=== PATIENT | female | born 1950 ===

== ENCOUNTER 2021-02-12 10:45 | Outpatient (CLI) | payer OTHER ==
[~2021-02-12 10:45] MED LIST: CRESTOR10 MG
== END 2021-02-12 10:58 | disposition home or self-care (01) ==
LOC: MAMO-SONO 10:45
PROVIDERS: ATTEND Specialist
DX: N64.51 Induration of breast (principal); Z12.31 Encounter for screening mammogram for malignant neoplasm of breast; J45.998 Other asthma

== ENCOUNTER 2021-10-01 08:00 | Outpatient (CLI) | payer OTHER | END 2021-10-01 08:30 | disposition home or self-care (01) | LOC: PPH VACUNA 08:00 | PROVIDERS: ATTEND Emergency Medicine Pediatric Emergency Medicine | DX: Z23 Encounter for immunization (principal) ==

== ENCOUNTER 2022-04-22 11:55 | Outpatient (CLI) | payer OTHER | END 2022-04-22 12:04 | disposition home or self-care (01) | LOC: MRI 11:55 | DX: M25.562 Pain in left knee (principal); M25.561 Pain in right knee ==

== ENCOUNTER 2022-06-02 14:28 | Outpatient (CLI) | payer OTHER | END 2022-06-02 14:32 | disposition home or self-care (01) | LOC: SONOGRAMA 14:28 | PROVIDERS: ATTEND Specialist | DX: N23 Unspecified renal colic (principal) ==

== ENCOUNTER 2024-09-28 10:10 | Outpatient (CLI) | payer OTHER | END 2024-09-28 10:18 | disposition home or self-care (01) | LOC: RAD 10:10 | PROVIDERS: ATTEND Specialist | DX: I10 Essential (primary) hypertension (principal); I35.0 Nonrheumatic aortic (valve) stenosis; R01.1 Cardiac murmur, unspecified; I65.23 Occlusion and stenosis of bilateral carotid arteries; M17.9 Osteoarthritis of knee, unspecified ==